=== PATIENT | male | born 1955 | race Caucasian/White ===

== ENCOUNTER 2024-03-28 12:30 | Inpatient (IN) | payer BC, MEDICARE ==
[2024-03-28] MEDS ORDERED: Sodium Chloride 0.9% 100 ML ONE (13:10)
[2024-03-28] MEDS ORDERED: Cefepime 2 GM VIAL ONE (13:10)
[2024-03-28 13:46] LABS: ALT (SGPT) 23 U/L (8-55); AST (SGOT) 23 U/L (5-34); Albumin 4.2 g/dL (3.4-4.8); Alkaline Phosphatase 40 U/L (40-110); Anion Gap 15 mmol/L (10-20); BUN (Urea Nitrogen) 21 mg/dL (8.4-25.7); Bilirubin, Total 0.8 mg/dL (0.2-1.2); Calc. Creatinine Clearance 0 mL/min (70-130); Calcium 11.4 mg/dL (7.8-10.44); Carbon Dioxide 23 mmol/L (23-31); Chloride 99 mmol/L (98-107); Estimated GFR 76; Glucose 168 mg/dL (80-115); Potassium 5.6 mmol/L (3.5-5.1); Protein, Total 8.2 g/dL (5.8-8.1); Sodium 131 mmol/L (136-145)
[2024-03-28] MEDS ORDERED: Ondansetron PF 4 MG/2 ML Vial ONE (14:07)
[2024-03-28 14:16] LABS: Anisocytosis MODERATE=16-30 cells HPF (0-5); Microcytosis SLIGHT = 6-15 cells HPF (0-5); Ovalocytes SLIGHT = 2-5 cells HPF (0-1); Platelet Adequacy Comment Platelets Normal; Polychromasia SLIGHT = 2-3 cells HPF (0-2); Tear Drops SLIGHT = 2-5 cells HPF (0-1)
[2024-03-28] MEDS ORDERED: Vancomycin 1 GM/200 ML (FROZEN) BAG ONE (14:16)
[2024-03-28 14:18] LABS: #Eosinophils Less than 0.03 10x3/uL (0.0-0.7); %Basophils 0.5 % (0.0-1.0); %Lymphocytes 5.2 % (21.0-51.0); %Monocytes 6.7 % (0.0-10.0); %Neutrophils 86.4 % (42.0-75.0); Hematocrit 43.5 % (42.0-52.0); Hemoglobin 13.2 g/dL (14.0-18.0); Mean Corpuscular HGB CONC 30.3 g/dL (32.0-36.0); Mean Corpuscular Hemoglobin 18.4 pg (27.0-31.0); Mean Corpuscular Volume 60.6 fL (78.0-98.0); Platelet Count 258 10x3/uL (130-400); RBC Distribution Width 18.6 % (11.5-14.5); Red Blood Cell (RBC) Count 7.18 mill/uL (4.70-6.10)
[2024-03-28 14:23] LABS: Bacteria/HPF None Seen HPF (None Seen); Bilirubin Negative (Negative); Blood, Urine Negative (Negative); CAUTI Indications for Culture Dysuria,urgency,freq; Clarity Clear (Clear); Glucose, Urine (Dipstick) 100 mg/dL (Negative); Ketone, Urine Negative (Negative); Leukocyte Negative Leu/uL (Negative); Nitrite Negative (Negative); Protein, Urine (Dipstick) 70 mg/dL (Neg-Trace); RBC/HPF None Seen HPF (0-3); Specific Gravity, Urine 1.014 (1.002-1.036); Squamous Epithelial 0-3 HPF (0-3); Urobilinogen Normal mg/dL (Less than 2); WBC/HPF 0-3 HPF (0-3)
[2024-03-28 14:24] LABS: Urine Culture Reflex No No
[2024-03-28] MEDS ORDERED: Dextrose 5% in Water 1,000 ML IV PRN (15:35)
[2024-03-28] MEDS ORDERED: Glucagon 1 MG/ML KIT IM PRN (15:35)
[2024-03-28] MEDS ORDERED: Ondansetron PF 4 MG/2 ML Vial IVP PRN (15:35)
[2024-03-28] MEDS ORDERED: Dextrose 50% Abboject 50 ML SYRINGE SLOW IVP PRN (15:35)
[2024-03-28 17:28] VITALS: BMI 37.6
[2024-03-28] MEDS: Dextrose 50% Abboject 50 ML SYRINGE SLOW IVP SCH (17:45)
[2024-03-28] MEDS: Insulin Regular, Human 100 UNIT/ML 10 ML VIAL IVP SCH (17:45)
[2024-03-28] MEDS: Sodium Polystyrene Sulfonate 15 GM (60 mL) BOT PO SCH (17:46)
[2024-03-28] MEDS: Vancomycin 1.5 GRAM/300 ML BAG 1.5 GM in Premix 1 BAG IVPB SCH (18:18)
[2024-03-28] MEDS: Albuterol 2.5 MG (0.5 mL) NEB NEB SCH (19:44)
[2024-03-28] MEDS ORDERED: Vancomycin 1 GM in Premix 1 BAG IVPB SCH (21:00)
[2024-03-28] MEDS: Cefepime 2 GM in Sodium Chloride 0.9% 100 ML IVPB SCH (23:13)
[2024-03-28] MEDS: Insulin Lispro 100 UNIT/ML 10 ML VIAL SC PRN (23:13)
[2024-03-28] MEDS: traMADol HCl 50 MG TAB PO PRN (23:14)
[2024-03-29] MEDS ORDERED: Morphine 2 MG/ML VIAL SLOW IVP PRN (00:38)
[2024-03-29] MEDS: Acetaminophen 325 MG TAB PO PRN (00:38)
[2024-03-29] MEDS: Morphine 4 MG/ML VIAL SLOW IVP SCH (00:58)
[2024-03-29 05:25] LABS: Hematocrit 38.1 % (42.0-52.0); Hemoglobin 11.6 g/dL (14.0-18.0); Mean Corpuscular HGB CONC 30.4 g/dL (32.0-36.0); Mean Corpuscular Hemoglobin 18.6 pg (27.0-31.0); Mean Corpuscular Volume 61.2 fL (78.0-98.0); Platelet Count 239 10x3/uL (130-400); RBC Distribution Width 17.6 % (11.5-14.5); Red Blood Cell (RBC) Count 6.23 mill/uL (4.70-6.10); Reflex for Review?? YES
[2024-03-29 05:31] LABS: Vancomycin, Random 12.4 ug/mL (See Comment)
[2024-03-29 05:39] LABS: Anion Gap 12 mmol/L (10-20); BUN (Urea Nitrogen) 20 mg/dL (8.4-25.7); Calc. Creatinine Clearance 113 mL/min (70-130); Calcium 10.1 mg/dL (7.8-10.44); Carbon Dioxide 18 mmol/L (23-31); Chloride 102 mmol/L (98-107); Estimated GFR 75; Glucose 169 mg/dL (80-115); Potassium 4.2 mmol/L (3.5-5.1); Sodium 128 mmol/L (136-145)
[2024-03-29 05:59] LABS: Elliptocytes SLIGHT = 2-5 cells HPF (0-1); Hypochromia SLIGHT = 6-15 cells HPF (0-5); Microcytosis MODERATE=15-30 cells HPF (0-5); Platelet Adequacy Comment Platelets Normal; Polychromasia SLIGHT = 2-3 cells HPF (0-2)
[2024-03-29] MEDS: Levothyroxine 175 MCG TAB PO SCH (06:13)
[2024-03-29] MEDS: Enoxaparin 40 MG (0.4 mL) SYRINGE SC SCH (09:10)
[2024-03-29] MEDS: Fenofibrate Nanocrystallized 145 MG TAB PO SCH (09:10)
[2024-03-29] MEDS: Anastrozole 1 MG TAB PO SCH (09:10)
[2024-03-29] MEDS: Allopurinol 100 MG TAB PO SCH (09:10)
[2024-03-29] MEDS: VANCOMYCIN 1.25 GM/250 ML BAG 1.25 GM in Premix 1 BAG IVPB SCH ×2 (09:10→20:44)
[2024-03-29] MEDS: Sodium Chloride 0.9% 1,000 ML IV SCH (14:36)
[2024-03-29] MEDS: hydrOXYzine 25 MG TAB PO PRN (20:45)
[2024-03-29] MEDS: Melatonin 3 MG TAB PO PRN (20:45)
[2024-03-30 04:48] LABS: Anion Gap 13 mmol/L (10-20); BUN (Urea Nitrogen) 22 mg/dL (8.4-25.7); Calc. Creatinine Clearance 155 mL/min (70-130); Calcium 10.4 mg/dL (7.8-10.44); Carbon Dioxide 22 mmol/L (23-31); Chloride 100 mmol/L (98-107); Estimated GFR 97; Glucose 167 mg/dL (80-115); Potassium 4.2 mmol/L (3.5-5.1); Sodium 131 mmol/L (136-145)
[2024-03-30 04:59] LABS: CRP,High Sensitivity (Inhouse) 20.27 mg/dL (< or = 0.5)
[2024-03-31 03:38] LABS: %Basophils 0.9 % (0.0-1.0); %Eosinophils 4.1 % (0.0-10.0); %Lymphocytes 15.5 % (21.0-51.0); %Monocytes 12.6 % (0.0-10.0); %Neutrophils 65.6 % (42.0-75.0); Hematocrit 38.8 % (42.0-52.0); Hemoglobin 11.6 g/dL (14.0-18.0); Mean Corpuscular HGB CONC 29.9 g/dL (32.0-36.0); Mean Corpuscular Hemoglobin 18.4 pg (27.0-31.0); Mean Corpuscular Volume 61.5 fL (78.0-98.0); Platelet Count 288 10x3/uL (130-400); RBC Distribution Width 17.6 % (11.5-14.5); Red Blood Cell (RBC) Count 6.31 mill/uL (4.70-6.10)
[2024-03-31 03:50] LABS: Vancomycin, Random 18.6 ug/mL (See Comment)
[2024-03-31 03:53] LABS: Anion Gap 14 mmol/L (10-20); BUN (Urea Nitrogen) 25 mg/dL (8.4-25.7); Calc. Creatinine Clearance 135 mL/min (70-130); Calcium 10.5 mg/dL (7.8-10.44); Carbon Dioxide 22 mmol/L (23-31); Chloride 103 mmol/L (98-107); Estimated GFR 92; Glucose 186 mg/dL (80-115); Magnesium 1.8 mg/dL (1.6-2.6); Potassium 4.5 mmol/L (3.5-5.1); Sodium 134 mmol/L (136-145)
[2024-04-01 05:05] LABS: #Basophils 0.12 10x3/uL (0.0-0.2); %Basophils 1.3 % (0.0-1.0); %Lymphocytes 17.6 % (21.0-51.0); %Monocytes 13.6 % (0.0-10.0); %Neutrophils 60.8 % (42.0-75.0); Hematocrit 39.2 % (42.0-52.0); Hemoglobin 11.7 g/dL (14.0-18.0); Mean Corpuscular HGB CONC 29.8 g/dL (32.0-36.0); Mean Corpuscular Hemoglobin 18.4 pg (27.0-31.0); Mean Corpuscular Volume 61.7 fL (78.0-98.0); Mean Platelet Volume 10.5 fL (7.4-10.4); Platelet Count 304 10x3/uL (130-400); RBC Distribution Width 17.1 % (11.5-14.5); Red Blood Cell (RBC) Count 6.35 mill/uL (4.70-6.10)
[2024-04-01 05:14] LABS: Anion Gap 15 mmol/L (10-20); BUN (Urea Nitrogen) 23 mg/dL (8.4-25.7); Calc. Creatinine Clearance 142 mL/min (70-130); Calcium 11.1 mg/dL (7.8-10.44); Carbon Dioxide 23 mmol/L (23-31); Chloride 102 mmol/L (98-107); Estimated GFR 94; Glucose 202 mg/dL (80-115); Magnesium 1.7 mg/dL (1.6-2.6); Potassium 4.3 mmol/L (3.5-5.1); Sodium 136 mmol/L (136-145)
[2024-04-01] MEDS: Gabapentin 300 MG CAP PO SCH (09:47)
[2024-04-01] MEDS: Bisacodyl 5 MG TAB PO PRN (09:47)
[2024-04-01] MEDS: FLU (Fluad Triv) TS24-25 (65UP)/MF59C/PF 45 MCG/0.5 ML Syringe IM ONE (12:34)
[2024-04-01] MEDS: PHENTERMINE HCL 37.5 MG PO SCH (12:55)
[2024-04-01] MEDS: Fleet Saline Enema 133 ML BOT PR SCH (13:18)
[2024-04-01] MEDS: Senokot S 8.6-50 MG TAB PO SCH (20:00)
[2024-04-02 04:05] LABS: %Basophils 1.1 % (0.0-1.0); %Eosinophils 5.6 % (0.0-10.0); %Lymphocytes 14.8 % (21.0-51.0); %Monocytes 12.5 % (0.0-10.0); Hematocrit 41.3 % (42.0-52.0); Hemoglobin 12.2 g/dL (14.0-18.0); Mean Corpuscular HGB CONC 29.5 g/dL (32.0-36.0); Mean Corpuscular Hemoglobin 18.1 pg (27.0-31.0); Mean Corpuscular Volume 61.2 fL (78.0-98.0); Platelet Count 333 10x3/uL (130-400); RBC Distribution Width 17.8 % (11.5-14.5); Red Blood Cell (RBC) Count 6.75 mill/uL (4.70-6.10)
[2024-04-02 04:10] LABS: Anion Gap 14 mmol/L (10-20); BUN (Urea Nitrogen) 25 mg/dL (8.4-25.7); Calc. Creatinine Clearance 133 mL/min (70-130); Calcium 11.5 mg/dL (7.8-10.44); Carbon Dioxide 25 mmol/L (23-31); Chloride 101 mmol/L (98-107); Estimated GFR 91; Glucose 252 mg/dL (80-115); Magnesium 1.8 mg/dL (1.6-2.6); Potassium 4.4 mmol/L (3.5-5.1); Sodium 136 mmol/L (136-145)
[2024-04-02] MEDS: traMADol HCl 50 MG TAB PO PRN (09:06)
[2024-04-02] MEDS: Cefepime 2 GM VIAL ONE (12:25)
[2024-04-02] MEDS ORDERED: Iopamidol 370 76% 100 ML VIAL ONE (15:26)
[2024-04-03 04:08] LABS: Anion Gap 14 mmol/L (10-20); BUN (Urea Nitrogen) 22 mg/dL (8.4-25.7); Calc. Creatinine Clearance 139 mL/min (70-130); Carbon Dioxide 26 mmol/L (23-31); Chloride 100 mmol/L (98-107); Estimated GFR 94; Glucose 208 mg/dL (80-115); Magnesium 1.7 mg/dL (1.6-2.6); Potassium 4.6 mmol/L (3.5-5.1); Sodium 135 mmol/L (136-145)
[2024-04-03 04:21] LABS: #Basophils 0.07 10x3/uL (0.0-0.2); %Basophils 0.7 % (0.0-1.0); %Eosinophils 4.5 % (0.0-10.0); %Lymphocytes 13.4 % (21.0-51.0); %Monocytes 10.8 % (0.0-10.0); %Neutrophils 67.4 % (42.0-75.0); Hematocrit 42.2 % (42.0-52.0); Hemoglobin 12.6 g/dL (14.0-18.0); Mean Corpuscular HGB CONC 29.9 g/dL (32.0-36.0); Mean Corpuscular Hemoglobin 18.2 pg (27.0-31.0); Mean Corpuscular Volume 61.1 fL (78.0-98.0); Platelet Count 350 10x3/uL (130-400); RBC Distribution Width 17.7 % (11.5-14.5); Red Blood Cell (RBC) Count 6.91 mill/uL (4.70-6.10)
[2024-04-03 15:30] VITALS: BP 147/62; TEMP 97.4
== END 2024-04-03 17:12 | disposition home or self-care (01) | DRG 872 ==
LOC: ERS 12:30 → PCU 14:50
PROVIDERS: ADMIT Internal Medicine; ATTEND Student in an Organized Health Care Education/Training Program
DX: A41.9 Sepsis, unspecified organism (principal); L03.115 Cellulitis of right lower limb; E87.1 Hypo-osmolality and hyponatremia; E11.9 Type 2 diabetes mellitus without complications; E87.5 Hyperkalemia; Z79.4 Long term (current) use of insulin; Z79.84 Long term (current) use of oral hypoglycemic drugs; Z79.899 Other long term (current) drug therapy; I10 Essential (primary) hypertension; Z90.89 Acquired absence of other organs; Z98.890 Other specified postprocedural states; E03.9 Hypothyroidism, unspecified; M1A.9XX0 Chronic gout, unspecified, without tophus (tophi); L97.519 Non-pressure chronic ulcer of other part of right foot with unspecified severity
CPT/HCPCS: 36415; 36416; 75635; 80048; 80053; 80202; 81001; 83605; 83735; 83880; 85025; 85060; 86141; 87040; 87086; 93005; 94640; 96365; 96366; 96367; 96375; J0692; J1650; J1815; J2272; J2405; J3370; J7611; J7999; Q9967